=== PATIENT | male | born 1955 | race Caucasian/White ===

== ENCOUNTER 2023-04-11 13:59 | Emergency (ER) | payer SELFPAY ==
[2023-04-11 16:49] LABS: INR 2.23 (0.86-1.11)
== END 2023-04-11 17:24 | disposition home or self-care (01) ==
LOC: MW.ED 13:59
DX: Z76.0 Encounter for issue of repeat prescription (principal); E11.9 Type 2 diabetes mellitus without complications; E03.9 Hypothyroidism, unspecified; E78.00 Pure hypercholesterolemia, unspecified; I10 Essential (primary) hypertension; Z79.01 Long term (current) use of anticoagulants; Z95.4 Presence of other heart-valve replacement; Z51.81 Encounter for therapeutic drug level monitoring; Z79.899 Other long term (current) drug therapy; Z87.891 Personal history of nicotine dependence; Z86.16 Personal history of COVID-19; Z79.84 Long term (current) use of oral hypoglycemic drugs; E78.5 Hyperlipidemia, unspecified
CPT/HCPCS: 36415; 85610; 99282

== ENCOUNTER 2023-05-27 12:10 | Emergency (ER) | payer MEDICARE ==
[2023-05-27] MEDS ORDERED: Sodium Chloride 0.9% 1,000 ML IV ONE (12:20)
[2023-05-27] MEDS ORDERED: Sodium Chloride 0.9% 500 ML IV ONE (12:21)
[2023-05-27 12:32] LABS: BASOPHILS ABSOLUTE AUTO 0.1 K/uL (0.0-0.1); BASOPHILS PERCENT AUTO 0.5 % (0.0-1.5); EOSINOPHILS ABSOLUTE AUTO 0.3 K/uL (0.0-0.7); HEMATOCRIT 49.6 % (38.0-50.0); HEMOGLOBIN 17.1 g/dL (13.0-17.0); LYMPHOCYTES ABSOLUTE AUTO 1.6 K/uL (0.6-2.4); LYMPHOCYTES PERCENT AUTO 16.5 % (16.0-40.0); MEAN CORPUSCULAR HEMOGLOBIN 29.1 pg (27.0-32.0); MEAN CORPUSCULAR HGB CONC 34.5 g/dL (31.0-37.0); MEAN CORPUSCULAR VOLUME 84.5 fL (80.0-98.0); MONOCYTES ABSOLUTE AUTO 0.9 K/uL (0.0-0.8); MONOCYTES PERCENT AUTO 9.5 % (0.0-15.0); NEUTROPHILS ABSOLUTE AUTO 6.7 K/uL (1.4-5.7); NEUTROPHILS PERCENT AUTO 70.5 % (48.0-80.0); NRBC ABSOLUTE 0 K/uL; PLATELET COUNT,PLT 218 K/uL (150-400); RED BLOOD CELL COUNT 5.87 M/uL (4.50-5.90); WHITE BLOOD CELL COUNT,WBC 9.55 K/uL (4.0-11.0)
[2023-05-27 12:39] LABS: D-DIMER QUANTITATIVE 0.59 mg/L FEU (0.00-0.50); INR 3.05 (0.86-1.11)
[2023-05-27 12:46] LABS: A/G RATIO 0.7 (0.9-1.6); ALBUMIN 3.4 g/dL (3.4-5.0); BILIRUBIN TOTAL 0.5 mg/dL (0.2-1.0); CALCIUM 8.5 mg/dL (8.5-10.1); CARBON DIOXIDE,CO2 21.3 mmol/L (21.0-32.0); CREATININE 1.2 mg/dL (0.8-1.3); EST CRCL DRUG DOSING (CG) 57.79 mL/min; POTASSIUM,K 4.2 mmol/L (3.5-5.1); PROTEIN TOTAL,TP 8.2 g/dL (6.4-8.2)
[2023-05-27 14:08] LABS: CORONAVIRUS COVID-19 NAA NEGATIVE (NEGATIVE); INFLUENZA A NAA NEGATIVE (NEGATIVE); INFLUENZA B NAA NEGATIVE (NEGATIVE)
[2023-05-27] MEDS ORDERED: Metoprolol Tartrate 25 MG Tab PO ONE (14:32)
[2023-05-27] MEDS ORDERED: Iopamidol 755 MG/ML 500 ML Multipack Bottle IVPUSH STA (15:05)
== END 2023-05-27 16:22 | disposition left against medical advice (07) ==
LOC: MW.ED 12:10
DX: I48.19 Other persistent atrial fibrillation (principal); R94.31 Abnormal electrocardiogram [ECG] [EKG]; I10 Essential (primary) hypertension; E78.5 Hyperlipidemia, unspecified; E11.9 Type 2 diabetes mellitus without complications; Z79.01 Long term (current) use of anticoagulants; Z79.899 Other long term (current) drug therapy; Z79.84 Long term (current) use of oral hypoglycemic drugs; Z86.16 Personal history of COVID-19; Z20.822 Contact with and (suspected) exposure to COVID-19
CPT/HCPCS: 0240U; 36415; 71045; 71275; 80053; 83690; 84484; 85025; 85379; 85610; 93005; 99285; A9270; J7030; Q9967; 93010; 99284

== ENCOUNTER 2023-07-16 12:09 | Emergency (ER) | payer MEDICARE ==
[2023-07-16 12:45] LABS: BASOPHILS ABSOLUTE AUTO 0.08 K/uL (0.00-0.20); BASOPHILS PERCENT AUTO 0.8 % (0.0-1.0); EOSINOPHILS ABSOLUTE AUTO 0.31 K/uL (0.00-0.45); EOSINOPHILS PERCENT AUTO 2.9 % (0.0-6.0); HEMATOCRIT 51.6 % (42.0-52.0); HEMOGLOBIN 17.4 g/dL (14.0-18.0); IMMATURE GRAN ABSOLUTE AUTO 0.05 K/uL (0.00-0.05); IMMATURE GRAN PERCENT AUTO 0.5 % (0.0-0.4); LYMPHOCYTES ABSOLUTE AUTO 1.24 K/uL (1.00-4.80); LYMPHOCYTES PERCENT AUTO 11.7 % (24.0-44.0); MEAN CORPUSCULAR HEMOGLOBIN 29.3 pg (28.0-32.0); MEAN CORPUSCULAR HGB CONC 33.7 g/dL (32.0-36.0); MEAN PLATELET VOLUME 10.2 fL (9.4-12.4); MONOCYTES PERCENT AUTO 9.4 % (0.0-8.0); NEUTROPHILS ABSOLUTE AUTO 7.95 K/uL (1.80-7.70); NEUTROPHILS PERCENT AUTO 74.7 % (41.0-71.0); PLATELET COUNT,PLT 259 K/uL (150-400); RED BLOOD CELL COUNT 5.93 M/uL (4.52-5.90); WHITE BLOOD CELL COUNT,WBC 10.63 K/uL (3.9-11.3)
[2023-07-16 13:21] LABS: A/G RATIO 0.8 (0.9-1.6); ALBUMIN 3.7 g/dL (3.4-5.0); BILIRUBIN TOTAL 0.5 mg/dL (0.2-1.0); CALCIUM 9.4 mg/dL (8.5-10.1); CARBON DIOXIDE,CO2 19.1 mmol/L (21.0-32.0); CREATININE 1.3 mg/dL (0.8-1.3); EST CRCL DRUG DOSING (CG) 53.35 mL/min; POTASSIUM,K 4.2 mmol/L (3.5-5.1); PROTEIN TOTAL,TP 8.3 g/dL (6.4-8.2)
[2023-07-16 13:57] LABS: HEMOGLOBIN A1C 8.9 %
== END 2023-07-16 15:05 | disposition home or self-care (01) ==
LOC: MW.ED 12:09
DX: I10 Essential (primary) hypertension (principal); I48.91 Unspecified atrial fibrillation; E78.00 Pure hypercholesterolemia, unspecified; E11.9 Type 2 diabetes mellitus without complications; Z79.899 Other long term (current) drug therapy; Z79.01 Long term (current) use of anticoagulants; Z79.85 Long-term (current) use of injectable non-insulin antidiabetic drugs; Z79.84 Long term (current) use of oral hypoglycemic drugs
CPT/HCPCS: 36415; 71045; 71045-26; 80053; 83036; 84484; 85025; 93005; 93010; 99283; 99284

== ENCOUNTER 2024-05-16 19:27 | Emergency (ER) | payer MEDICARE ==
[2024-05-16 20:00] LABS: BASE EXCESS VENOUS -6.9 (-2.0-3.0); BASOPHILS ABSOLUTE AUTO 0.06 K/uL (0.00-0.20); BASOPHILS PERCENT AUTO 0.5 % (0.0-1.0); EOSINOPHILS ABSOLUTE AUTO 0.32 K/uL (0.00-0.45); EOSINOPHILS PERCENT AUTO 2.6 % (0.0-6.0); HEMATOCRIT 53.4 % (42.0-52.0); HEMOGLOBIN 17.5 g/dL (14.0-18.0); IMMATURE GRAN ABSOLUTE AUTO 0.04 K/uL (0.00-0.05); IMMATURE GRAN PERCENT AUTO 0.3 % (0.0-0.4); LYMPHOCYTES ABSOLUTE AUTO 1.43 K/uL (1.00-4.80); LYMPHOCYTES PERCENT AUTO 11.7 % (24.0-44.0); MEAN CORPUSCULAR HEMOGLOBIN 27.4 pg (28.0-32.0); MEAN CORPUSCULAR HGB CONC 32.8 g/dL (32.0-36.0); MEAN CORPUSCULAR VOLUME 83.7 fL (83.0-99.0); MEAN PLATELET VOLUME 9.7 fL (9.4-12.4); MONOCYTES ABSOLUTE AUTO 1.22 K/uL (0.00-0.80); NEUTROPHILS ABSOLUTE AUTO 9.14 K/uL (1.80-7.70); NEUTROPHILS PERCENT AUTO 74.9 % (41.0-71.0); PH,VENOUS 7.34 (7.31-7.41); PLATELET COUNT,PLT 220 K/uL (150-400); RED BLOOD CELL COUNT 6.38 M/uL (4.52-5.90); WHITE BLOOD CELL COUNT,WBC 12.21 K/uL (3.9-11.3)
[2024-05-16 20:18] LABS: INR 2.33 (0.86-1.11); PTT,PARTIAL THROMBOPLSTIN TIME 37.6 SEC (23.9-30.7)
[2024-05-16] MEDS: Sodium Chloride 0.9% 500 ML IV SCH (20:29)
[2024-05-16] MEDS: Sodium Chloride 0.9% 10 ML Syringe FLUSH PRN (20:30)
[2024-05-16] MEDS: Sodium Chloride 0.9% 2.5 ML Syringe FLUSH PRN (20:30)
[2024-05-16] MEDS: Acetaminophen 500 MG Tab PO ONE (20:30)
[2024-05-16 20:35] LABS: LACTIC ACID 3.2 mmol/L (0.4-2.0)
[2024-05-16 20:41] LABS: A/G RATIO 0.8 (0.9-1.6); ALBUMIN 3.4 g/dL (3.4-5.0); BILIRUBIN TOTAL 0.5 mg/dL (0.2-1.0); CARBON DIOXIDE,CO2 18.9 mmol/L (21.0-32.0); CREATININE 1.6 mg/dL (0.8-1.3); EST CRCL DRUG DOSING (CG) 42.75 mL/min; MAGNESIUM 1.6 mg/dL (1.8-2.4); PROTEIN TOTAL,TP 7.8 g/dL (6.4-8.2); TSH ULTRASENSITIVE 2.25 uIU/mL (0.36-3.74)
[2024-05-16] MEDS: Sodium Chloride 0.9% 1,000 ML IV ONE (22:20)
[2024-05-17] MEDS: Sodium Chloride 0.9% 1,000 ML IV ONE (00:16)
[2024-05-17 00:52] LABS: APPEARANCE,URINE CLEAR; BILIRUBIN,URINE NEGATIVE (NEGATIVE); COLOR,URINE YELLOW; GLUCOSE,URINE >=1000 mg/dL (NEGATIVE); KETONES,URINE NEGATIVE (NEGATIVE); LEUKOCYTE ESTERASE,URINE NEGATIVE (NEGATIVE); NITRITE,URINE NEGATIVE (NEGATIVE); OCCULT BLOOD,URINE NEGATIVE (NEGATIVE); PROTEIN,URINE NEGATIVE (NEGATIVE); UROBILINOGEN,URINE 0.2 EU/dL (<2.0)
[2024-05-17 01:02] LABS: AMPHETAMINES SCREEN, URINE NEGATIVE (CUTOFF=500); BARBITURATE SCREEN,URINE NEGATIVE (CUTOFF=200); BENZODIAZEPINES SCREEN,URINE NEGATIVE (CUTOFF=150); BUPRENORPHINE SCREEN,URINE NEGATIVE (CUTOFF=10); METHADONE SCREEN, URINE NEGATIVE (CUTOFF=200); METHAMPHETAMINES SCREEN, URINE NEGATIVE (CUTOFF=500); OXYCODONE SCREEN,URINE NEGATIVE (CUT0FF=100); PCP SCREEN,URINE NEGATIVE (CUTOFF=25); THC SCREEN,URINE 20 NG/ML NEGATIVE (CUTOFF=50)
== END 2024-05-17 02:50 ==
LOC: MW.ED 19:27
DX: I63.9 Cerebral infarction, unspecified (principal); I48.91 Unspecified atrial fibrillation; I10 Essential (primary) hypertension; E78.00 Pure hypercholesterolemia, unspecified; E11.9 Type 2 diabetes mellitus without complications; Z90.49 Acquired absence of other specified parts of digestive tract; Z79.899 Other long term (current) drug therapy; Z79.01 Long term (current) use of anticoagulants; Z79.84 Long term (current) use of oral hypoglycemic drugs
CPT/HCPCS: 36415; 70450; 71045; 73090; 80053; 80305; 80307; 81003; 82803; 83605; 83735; 83880; 84443; 84484; 85025; 85610; 85730; 93005; 96360; 96361; 99285; A9270; J3490; J7030; J7040; U0002; 93010

== ENCOUNTER 2024-07-07 14:37 | Emergency (ER) | payer MEDICARE, MEDICAID ==
[2024-07-07 17:19] LABS: BILIRUBIN,URINE NEGATIVE (NEGATIVE); COLOR,URINE YELLOW; GLUCOSE,URINE >=1000 mg/dL (NEGATIVE); KETONES,URINE NEGATIVE (NEGATIVE); LEUKOCYTE ESTERASE,URINE NEGATIVE (NEGATIVE); NITRITE,URINE NEGATIVE (NEGATIVE); OCCULT BLOOD,URINE LARGE (NEGATIVE); PROTEIN,URINE NEGATIVE (NEGATIVE); UROBILINOGEN,URINE 0.2 EU/dL (<2.0)
[2024-07-07 17:27] LABS: APPEARANCE,URINE SLT CLOUDY
[2024-07-07 17:32] LABS: BACTERIA,URINE FEW (NEGATIVE); EPITHELIAL CELLS,URINE RARE (NONE-FEW); RBC,URINE 15-20 (0-2/HPF); WBC,URINE 0-1 (0-5/HPF)
[2024-07-07] MEDS: Sodium Chloride 0.9% 1,000 ML IV ONE (17:57)
[2024-07-07] MEDS: Ketorolac 30 MG/ML SDV IVPUSH ONE (17:57)
[2024-07-07 18:05] LABS: BASOPHILS ABSOLUTE AUTO 0.09 K/uL (0.00-0.20); BASOPHILS PERCENT AUTO 0.8 % (0.0-1.0); EOSINOPHILS ABSOLUTE AUTO 0.26 K/uL (0.00-0.45); EOSINOPHILS PERCENT AUTO 2.3 % (0.0-6.0); HEMATOCRIT 55.9 % (42.0-52.0); IMMATURE GRAN ABSOLUTE AUTO 0.05 K/uL (0.00-0.05); IMMATURE GRAN PERCENT AUTO 0.4 % (0.0-0.4); LYMPHOCYTES ABSOLUTE AUTO 1.37 K/uL (1.00-4.80); LYMPHOCYTES PERCENT AUTO 12.3 % (24.0-44.0); MEAN CORPUSCULAR HEMOGLOBIN 26.8 pg (28.0-32.0); MEAN CORPUSCULAR HGB CONC 32.2 g/dL (32.0-36.0); MEAN CORPUSCULAR VOLUME 83.3 fL (83.0-99.0); MEAN PLATELET VOLUME 9.7 fL (9.4-12.4); MONOCYTES ABSOLUTE AUTO 1.17 K/uL (0.00-0.80); MONOCYTES PERCENT AUTO 10.5 % (0.0-8.0); NEUTROPHILS ABSOLUTE AUTO 8.24 K/uL (1.80-7.70); NEUTROPHILS PERCENT AUTO 73.7 % (41.0-71.0); PLATELET COUNT,PLT 203 K/uL (150-400); RED BLOOD CELL COUNT 6.71 M/uL (4.52-5.90); WHITE BLOOD CELL COUNT,WBC 11.18 K/uL (3.9-11.3)
[2024-07-07 18:39] LABS: A/G RATIO 0.8 (0.9-1.6); ALBUMIN 3.7 g/dL (3.4-5.0); BILIRUBIN TOTAL 0.7 mg/dL (0.2-1.0); CALCIUM 8.9 mg/dL (8.5-10.1); CARBON DIOXIDE,CO2 23.4 mmol/L (21.0-32.0); CREATININE 1.2 mg/dL (0.8-1.3); EST CRCL DRUG DOSING (CG) 55.08 mL/min; POTASSIUM,K 4.2 mmol/L (3.5-5.1); PROTEIN TOTAL,TP 8.5 g/dL (6.4-8.2)
[2024-07-07] MEDS: Iopamidol 755 MG/ML 500 ML Multipack Bottle IVPUSH STA (19:19)
== END 2024-07-07 20:48 | disposition home or self-care (01) ==
LOC: MW.ED 14:37
DX: R31.9 Hematuria, unspecified (principal); R91.1 Solitary pulmonary nodule; I10 Essential (primary) hypertension; E11.9 Type 2 diabetes mellitus without complications; Z90.49 Acquired absence of other specified parts of digestive tract; Z79.899 Other long term (current) drug therapy; Z79.84 Long term (current) use of oral hypoglycemic drugs; Z75.8 Other problems related to medical facilities and other health care
CPT/HCPCS: 36415; 74177; 80053; 81001; 85025; 96361; 96374; 99284; J1885; J7030; Q9967

== ENCOUNTER 2024-08-06 14:10 | Inpatient (IN) | payer MEDICARE, MEDICAID ==
[2024-08-06] MEDS: Iopamidol 755 MG/ML 500 ML Multipack Bottle IVPUSH STA (14:22)
[2024-08-06 14:59] LABS: EOSINOPHILS ABSOLUTE AUTO 0.22 K/uL (0.00-0.45); EOSINOPHILS PERCENT AUTO 2.3 % (0.0-6.0); HEMATOCRIT 54.6 % (42.0-52.0); HEMOGLOBIN 17.7 g/dL (14.0-18.0); IMMATURE GRAN ABSOLUTE AUTO 0.04 K/uL (0.00-0.05); IMMATURE GRAN PERCENT AUTO 0.4 % (0.0-0.4); LYMPHOCYTES ABSOLUTE AUTO 0.91 K/uL (1.00-4.80); LYMPHOCYTES PERCENT AUTO 9.5 % (24.0-44.0); MEAN CORPUSCULAR HGB CONC 32.4 g/dL (32.0-36.0); MEAN CORPUSCULAR VOLUME 83.4 fL (83.0-99.0); MONOCYTES ABSOLUTE AUTO 0.86 K/uL (0.00-0.80); NEUTROPHILS ABSOLUTE AUTO 7.46 K/uL (1.80-7.70); NEUTROPHILS PERCENT AUTO 77.8 % (41.0-71.0); PLATELET COUNT,PLT 167 K/uL (150-400); RED BLOOD CELL COUNT 6.55 M/uL (4.52-5.90); WHITE BLOOD CELL COUNT,WBC 9.59 K/uL (3.9-11.3)
[2024-08-06 15:03] LABS: INR 1.88 (0.86-1.11)
[2024-08-06 15:26] LABS: A/G RATIO 0.8 (0.9-1.6); ALANINE AMINOTRANSFERASE,ALT 19 IU/L (14-63); ALBUMIN 3.5 g/dL (3.4-5.0); ALKALINE PHOSPHATASE 126 U/L (46-116); ASPARTATE AMNIOTRANSFERASE,AST 24 IU/L (15-37); BILIRUBIN TOTAL 0.7 mg/dL (0.2-1.0); BLOOD UREA NITROGEN,BUN 16 mg/dL (7.0-18.0); CARBON DIOXIDE,CO2 25.8 mmol/L (21.0-32.0); CHLORIDE,CL 101 mmol/L (98-107); CREATININE 1.3 mg/dL (0.8-1.3); GLUCOSE RANDOM 175 mg/dL (74-106); POTASSIUM,K 4.6 mmol/L (3.5-5.1); PROTEIN TOTAL,TP 7.8 g/dL (6.4-8.2); SODIUM,NA 136 mmol/L (136-148)
[2024-08-06 15:28] LABS: ESTIMATED GFR 60 mL/min (>60)
[2024-08-06 17:25] LABS: APPEARANCE,URINE CLEAR; BILIRUBIN,URINE NEGATIVE (NEGATIVE); COLOR,URINE YELLOW; GLUCOSE,URINE >=1000 mg/dL (NEGATIVE); KETONES,URINE NEGATIVE (NEGATIVE); LEUKOCYTE ESTERASE,URINE NEGATIVE (NEGATIVE); NITRITE,URINE NEGATIVE (NEGATIVE); OCCULT BLOOD,URINE SMALL (NEGATIVE); PH,URINE 5.5 (5.0-8.0); PROTEIN,URINE NEGATIVE (NEGATIVE); UROBILINOGEN,URINE 0.2 EU/dL (<2.0)
[2024-08-06 18:26] LABS: BACTERIA,URINE RARE (NEGATIVE); EPITHELIAL CELLS,URINE RARE (NONE-FEW); RBC,URINE 0-2 (0-2/HPF); WBC,URINE 0-1 (0-5/HPF)
[2024-08-06] MEDS ORDERED: Ondansetron 4 MG Tab.DIS PO PRN (18:26)
[2024-08-06] MEDS ORDERED: Bisacodyl 5 MG Tab PO PRN (18:26)
[2024-08-06 19:05] LABS: TSH ULTRASENSITIVE 1.23 uIU/mL (0.36-3.74)
[2024-08-06 19:08] LABS: HEMOGLOBIN A1C 8.7 %
[2024-08-06] MEDS: Metoprolol Tartrate 25 MG Tab PO SCH (20:05)
[2024-08-06 20:13] LABS: INR 1.81 (0.86-1.11)
[2024-08-06] MEDS: Warfarin 5 MG Tab PO ONE (22:33)
[2024-08-07] MEDS: Acetaminophen 325 MG Tab PO PRN (02:39)
[2024-08-07 06:06] LABS: BASOPHILS ABSOLUTE AUTO 0.11 K/uL (0.00-0.20); EOSINOPHILS ABSOLUTE AUTO 0.22 K/uL (0.00-0.45); HEMATOCRIT 54.9 % (42.0-52.0); HEMOGLOBIN 17.8 g/dL (14.0-18.0); IMMATURE GRAN ABSOLUTE AUTO 0.04 K/uL (0.00-0.05); IMMATURE GRAN PERCENT AUTO 0.4 % (0.0-0.4); LYMPHOCYTES ABSOLUTE AUTO 1.43 K/uL (1.00-4.80); LYMPHOCYTES PERCENT AUTO 12.9 % (24.0-44.0); MEAN CORPUSCULAR HEMOGLOBIN 26.7 pg (28.0-32.0); MEAN CORPUSCULAR HGB CONC 32.4 g/dL (32.0-36.0); MEAN CORPUSCULAR VOLUME 82.4 fL (83.0-99.0); MEAN PLATELET VOLUME 10.1 fL (9.4-12.4); MONOCYTES ABSOLUTE AUTO 1.05 K/uL (0.00-0.80); MONOCYTES PERCENT AUTO 9.4 % (0.0-8.0); NEUTROPHILS ABSOLUTE AUTO 8.27 K/uL (1.80-7.70); NEUTROPHILS PERCENT AUTO 74.3 % (41.0-71.0); PLATELET COUNT,PLT 177 K/uL (150-400); RED BLOOD CELL COUNT 6.66 M/uL (4.52-5.90); WHITE BLOOD CELL COUNT,WBC 11.12 K/uL (3.9-11.3)
[2024-08-07 06:20] LABS: INR 1.77 (0.86-1.11)
[2024-08-07 06:34] LABS: A/G RATIO 0.8 (0.9-1.6); ALBUMIN 3.5 g/dL (3.4-5.0); BILIRUBIN TOTAL 0.8 mg/dL (0.2-1.0); CARBON DIOXIDE,CO2 23.2 mmol/L (21.0-32.0); CREATININE 1.3 mg/dL (0.8-1.3); EST CRCL DRUG DOSING (CG) 49.08 mL/min; POTASSIUM,K 4.1 mmol/L (3.5-5.1); PROTEIN TOTAL,TP 7.8 g/dL (6.4-8.2)
[2024-08-07] MEDS: ARIPiprazole 10 MG Tab PO SCH (08:49)
[2024-08-07] MEDS ORDERED: Warfarin 5 MG Tab PO SCH (09:00)
[2024-08-07] MEDS ORDERED: Warfarin Sliding Scale PO SCH (09:00)
[2024-08-07] MEDS: Metoprolol Tartrate 5 MG/5 ML SDV IVPUSH ONE ×2 (10:23→17:58)
[2024-08-07] MEDS: Metoprolol Tartrate 25 MG Tab PO ONE (10:24)
[2024-08-07] MEDS: Warfarin 5 MG Tab PO ONE (14:18)
[2024-08-07] MEDS: Warfarin Sliding Scale SCH (14:20)
[2024-08-07] MEDS: LORazepam 2 MG/ML SDV IVPUSH ONE (15:02)
[2024-08-07] MEDS: Gadobenate Dimeglumine 529 MG/ML 20 ML SDV IVPUSH ONE (15:56)
[2024-08-07] MEDS: Metoprolol Tartrate 50 MG Tab PO SCH (20:55)
[2024-08-08 06:32] LABS: INR 2.03 (0.86-1.11)
[2024-08-08] MEDS: Metoprolol Tartrate 25 MG Tab PO ONE (07:28)
[2024-08-08 08:00] LABS: BASOPHILS ABSOLUTE AUTO 0.08 K/uL (0.00-0.20); BASOPHILS PERCENT AUTO 0.7 % (0.0-1.0); EOSINOPHILS ABSOLUTE AUTO 0.09 K/uL (0.00-0.45); EOSINOPHILS PERCENT AUTO 0.8 % (0.0-6.0); HEMATOCRIT 54.6 % (42.0-52.0); HEMOGLOBIN 17.9 g/dL (14.0-18.0); IMMATURE GRAN ABSOLUTE AUTO 0.04 K/uL (0.00-0.05); IMMATURE GRAN PERCENT AUTO 0.4 % (0.0-0.4); LYMPHOCYTES ABSOLUTE AUTO 1.07 K/uL (1.00-4.80); LYMPHOCYTES PERCENT AUTO 9.9 % (24.0-44.0); MEAN CORPUSCULAR HEMOGLOBIN 27.1 pg (28.0-32.0); MEAN CORPUSCULAR HGB CONC 32.8 g/dL (32.0-36.0); MEAN CORPUSCULAR VOLUME 82.7 fL (83.0-99.0); MEAN PLATELET VOLUME 9.7 fL (9.4-12.4); MONOCYTES ABSOLUTE AUTO 0.93 K/uL (0.00-0.80); MONOCYTES PERCENT AUTO 8.6 % (0.0-8.0); NEUTROPHILS ABSOLUTE AUTO 8.58 K/uL (1.80-7.70); NEUTROPHILS PERCENT AUTO 79.6 % (41.0-71.0); PLATELET COUNT,PLT 163 K/uL (150-400); WHITE BLOOD CELL COUNT,WBC 10.79 K/uL (3.9-11.3)
[2024-08-08 08:24] LABS: A/G RATIO 0.8 (0.9-1.6); ALBUMIN 3.5 g/dL (3.4-5.0); BILIRUBIN TOTAL 0.7 mg/dL (0.2-1.0); CALCIUM 9.3 mg/dL (8.5-10.1); CARBON DIOXIDE,CO2 23.4 mmol/L (21.0-32.0); CREATININE 1.4 mg/dL (0.8-1.3); EST CRCL DRUG DOSING (CG) 45.57 mL/min; POTASSIUM,K 4.4 mmol/L (3.5-5.1); PROTEIN TOTAL,TP 8.1 g/dL (6.4-8.2)
[2024-08-08] MEDS: Lisinopril 5 MG Tab PO SCH (08:34)
[2024-08-08] MEDS: Empagliflozin 10 MG Tab PO SCH (08:35)
[2024-08-08] MEDS ORDERED: ARIPiprazole 10 MG Tab PO SCH (09:00)
[2024-08-08] MEDS: Pantoprazole 40 MG Tab.CR PO SCH (09:01)
[2024-08-08] MEDS: Warfarin 10 MG Tab PO SCH (13:24)
[2024-08-08] MEDS: Sodium Chloride 0.9% 500 ML IV SCH (15:00)
[2024-08-08] MEDS: Carboxymethylcellulose Sodium 0.5% Ophth Soln 0.4 ML UD Box of 30 EYEBOTH PRN (17:23)
[2024-08-08] MEDS: rOPINIRole 1 MG Tab PO SCH (21:20)
[2024-08-08] MEDS: Melatonin 3 MG Tab PO PRN (21:24)
[2024-08-09 07:13] LABS: BASOPHILS ABSOLUTE AUTO 0.09 K/uL (0.00-0.20); BASOPHILS PERCENT AUTO 0.8 % (0.0-1.0); EOSINOPHILS ABSOLUTE AUTO 0.38 K/uL (0.00-0.45); EOSINOPHILS PERCENT AUTO 3.6 % (0.0-6.0); HEMATOCRIT 55.2 % (42.0-52.0); HEMOGLOBIN 17.8 g/dL (14.0-18.0); IMMATURE GRAN ABSOLUTE AUTO 0.03 K/uL (0.00-0.05); IMMATURE GRAN PERCENT AUTO 0.3 % (0.0-0.4); LYMPHOCYTES PERCENT AUTO 14.1 % (24.0-44.0); MEAN CORPUSCULAR HEMOGLOBIN 26.8 pg (28.0-32.0); MEAN CORPUSCULAR HGB CONC 32.2 g/dL (32.0-36.0); MEAN CORPUSCULAR VOLUME 83.3 fL (83.0-99.0); MEAN PLATELET VOLUME 9.7 fL (9.4-12.4); MONOCYTES ABSOLUTE AUTO 0.97 K/uL (0.00-0.80); MONOCYTES PERCENT AUTO 9.1 % (0.0-8.0); NEUTROPHILS ABSOLUTE AUTO 7.65 K/uL (1.80-7.70); NEUTROPHILS PERCENT AUTO 72.1 % (41.0-71.0); PLATELET COUNT,PLT 156 K/uL (150-400); RED BLOOD CELL COUNT 6.63 M/uL (4.52-5.90); WHITE BLOOD CELL COUNT,WBC 10.62 K/uL (3.9-11.3)
[2024-08-09 07:23] LABS: INR 2.45 (0.86-1.11)
[2024-08-09] MEDS: Levothyroxine 100 MCG Tab PO SCH (07:41)
[2024-08-09 07:53] LABS: A/G RATIO 0.8 (0.9-1.6); ALBUMIN 3.4 g/dL (3.4-5.0); BILIRUBIN TOTAL 0.6 mg/dL (0.2-1.0); CALCIUM 9.2 mg/dL (8.5-10.1); CARBON DIOXIDE,CO2 21.5 mmol/L (21.0-32.0); CREATININE 1.5 mg/dL (0.8-1.3); EST CRCL DRUG DOSING (CG) 42.53 mL/min; POTASSIUM,K 4.2 mmol/L (3.5-5.1); PROTEIN TOTAL,TP 7.7 g/dL (6.4-8.2)
[2024-08-09] MEDS: Sodium Chloride 0.9% 1,000 ML IV ONE (11:30)
[2024-08-09] MEDS: Warfarin 5 MG Tab PO ONE (14:31)
[2024-08-09] MEDS: Polyethylene Glycol 3350 Powder 17 GM Packet PO PRN (19:47)
[2024-08-10 05:41] LABS: BASOPHILS ABSOLUTE AUTO 0.09 K/uL (0.00-0.20); BASOPHILS PERCENT AUTO 0.9 % (0.0-1.0); EOSINOPHILS ABSOLUTE AUTO 0.44 K/uL (0.00-0.45); EOSINOPHILS PERCENT AUTO 4.6 % (0.0-6.0); HEMATOCRIT 53.7 % (42.0-52.0); HEMOGLOBIN 16.7 g/dL (14.0-18.0); IMMATURE GRAN ABSOLUTE AUTO 0.04 K/uL (0.00-0.05); IMMATURE GRAN PERCENT AUTO 0.4 % (0.0-0.4); LYMPHOCYTES ABSOLUTE AUTO 1.26 K/uL (1.00-4.80); LYMPHOCYTES PERCENT AUTO 13.2 % (24.0-44.0); MEAN CORPUSCULAR HEMOGLOBIN 26.3 pg (28.0-32.0); MEAN CORPUSCULAR HGB CONC 31.1 g/dL (32.0-36.0); MEAN CORPUSCULAR VOLUME 84.7 fL (83.0-99.0); MEAN PLATELET VOLUME 10.5 fL (9.4-12.4); MONOCYTES ABSOLUTE AUTO 1.04 K/uL (0.00-0.80); MONOCYTES PERCENT AUTO 10.9 % (0.0-8.0); NEUTROPHILS ABSOLUTE AUTO 6.64 K/uL (1.80-7.70); PLATELET COUNT,PLT 170 K/uL (150-400); RED BLOOD CELL COUNT 6.34 M/uL (4.52-5.90); WHITE BLOOD CELL COUNT,WBC 9.51 K/uL (3.9-11.3)
[2024-08-10 06:05] LABS: A/G RATIO 0.8 (0.9-1.6); ALBUMIN 3.1 g/dL (3.4-5.0); BILIRUBIN TOTAL 0.6 mg/dL (0.2-1.0); CARBON DIOXIDE,CO2 21.3 mmol/L (21.0-32.0); CREATININE 1.3 mg/dL (0.8-1.3); EST CRCL DRUG DOSING (CG) 49.08 mL/min; POTASSIUM,K 4.2 mmol/L (3.5-5.1); PROTEIN TOTAL,TP 7.2 g/dL (6.4-8.2)
[2024-08-10 11:23] LABS: INR 2.82 (0.86-1.11)
[2024-08-10] MEDS: Warfarin 5 MG Tab PO ONE (13:47)
[2024-08-11 07:13] LABS: BASOPHILS PERCENT AUTO 1.1 % (0.0-1.0); EOSINOPHILS ABSOLUTE AUTO 0.32 K/uL (0.00-0.45); EOSINOPHILS PERCENT AUTO 3.4 % (0.0-6.0); HEMATOCRIT 57.6 % (42.0-52.0); HEMOGLOBIN 18.4 g/dL (14.0-18.0); IMMATURE GRAN ABSOLUTE AUTO 0.03 K/uL (0.00-0.05); IMMATURE GRAN PERCENT AUTO 0.3 % (0.0-0.4); LYMPHOCYTES ABSOLUTE AUTO 1.52 K/uL (1.00-4.80); LYMPHOCYTES PERCENT AUTO 16.1 % (24.0-44.0); MEAN CORPUSCULAR HEMOGLOBIN 26.9 pg (28.0-32.0); MEAN CORPUSCULAR HGB CONC 31.9 g/dL (32.0-36.0); MEAN CORPUSCULAR VOLUME 84.1 fL (83.0-99.0); MEAN PLATELET VOLUME 10.3 fL (9.4-12.4); MONOCYTES ABSOLUTE AUTO 1.02 K/uL (0.00-0.80); MONOCYTES PERCENT AUTO 10.8 % (0.0-8.0); NEUTROPHILS ABSOLUTE AUTO 6.47 K/uL (1.80-7.70); NEUTROPHILS PERCENT AUTO 68.3 % (41.0-71.0); PLATELET COUNT,PLT 177 K/uL (150-400); RED BLOOD CELL COUNT 6.85 M/uL (4.52-5.90); WHITE BLOOD CELL COUNT,WBC 9.46 K/uL (3.9-11.3)
[2024-08-11 07:36] LABS: INR 2.81 (0.86-1.11)
[2024-08-11 07:52] LABS: A/G RATIO 0.8 (0.9-1.6); ALBUMIN 3.8 g/dL (3.4-5.0); BILIRUBIN TOTAL 0.7 mg/dL (0.2-1.0); CALCIUM 9.7 mg/dL (8.5-10.1); CARBON DIOXIDE,CO2 19.7 mmol/L (21.0-32.0); CREATININE 1.4 mg/dL (0.8-1.3); EST CRCL DRUG DOSING (CG) 45.57 mL/min; POTASSIUM,K 4.3 mmol/L (3.5-5.1); PROTEIN TOTAL,TP 8.5 g/dL (6.4-8.2)
[2024-08-11] MEDS ORDERED: 50% Dextrose in Water 50 ML Syringe IVPUSH PRN (08:14)
[2024-08-11] MEDS ORDERED: Glucagon,Human Recombinant 1 MG Vial IM PRN (08:14)
[2024-08-11] MEDS ORDERED: Albuterol/Ipratropium 3.0-0.5 MG/3 ML Neb Soln NEB PRN (08:59)
[2024-08-11] MEDS: Insulin Aspart 100 Units/ML 3 ML Pen SUBCUT SCH (13:24)
[2024-08-11] MEDS: Warfarin 5 MG Tab PO ONE (13:29)
[2024-08-11] MEDS: ARIPiprazole 10 MG Tab PO SCH (21:13)
[2024-08-11] MEDS: atorvaSTATin 40 MG Tab PO SCH (21:14)
[2024-08-12 05:49] LABS: BASOPHILS ABSOLUTE AUTO 0.09 K/uL (0.00-0.20); BASOPHILS PERCENT AUTO 1.1 % (0.0-1.0); EOSINOPHILS ABSOLUTE AUTO 0.34 K/uL (0.00-0.45); EOSINOPHILS PERCENT AUTO 4.2 % (0.0-6.0); HEMATOCRIT 54.6 % (42.0-52.0); HEMOGLOBIN 17.3 g/dL (14.0-18.0); IMMATURE GRAN ABSOLUTE AUTO 0.03 K/uL (0.00-0.05); IMMATURE GRAN PERCENT AUTO 0.4 % (0.0-0.4); LYMPHOCYTES ABSOLUTE AUTO 1.16 K/uL (1.00-4.80); LYMPHOCYTES PERCENT AUTO 14.3 % (24.0-44.0); MEAN CORPUSCULAR HEMOGLOBIN 26.5 pg (28.0-32.0); MEAN CORPUSCULAR HGB CONC 31.7 g/dL (32.0-36.0); MEAN CORPUSCULAR VOLUME 83.6 fL (83.0-99.0); MEAN PLATELET VOLUME 10.6 fL (9.4-12.4); MONOCYTES ABSOLUTE AUTO 0.99 K/uL (0.00-0.80); MONOCYTES PERCENT AUTO 12.2 % (0.0-8.0); NEUTROPHILS ABSOLUTE AUTO 5.52 K/uL (1.80-7.70); NEUTROPHILS PERCENT AUTO 67.8 % (41.0-71.0); PLATELET COUNT,PLT 169 K/uL (150-400); RED BLOOD CELL COUNT 6.53 M/uL (4.52-5.90); WHITE BLOOD CELL COUNT,WBC 8.13 K/uL (3.9-11.3)
[2024-08-12 06:16] LABS: CALCIUM 8.9 mg/dL (8.5-10.1); CARBON DIOXIDE,CO2 22.1 mmol/L (21.0-32.0); CREATININE 1.4 mg/dL (0.8-1.3); EST CRCL DRUG DOSING (CG) 45.57 mL/min; POTASSIUM,K 3.9 mmol/L (3.5-5.1)
[2024-08-12 06:20] LABS: INR 2.68 (0.86-1.11)
[2024-08-12] MEDS: Fluticasone NASAL Spray 16 GM Bottle NASBOTH SCH (08:41)
[2024-08-12] MEDS: Warfarin 10 MG Tab PO ONE (17:57)
[2024-08-12] MEDS: Warfarin 10 MG Tab PO SCH (19:32)
[2024-08-13 05:38] LABS: BASOPHILS ABSOLUTE AUTO 0.09 K/uL (0.00-0.20); EOSINOPHILS ABSOLUTE AUTO 0.41 K/uL (0.00-0.45); EOSINOPHILS PERCENT AUTO 4.5 % (0.0-6.0); HEMATOCRIT 52.4 % (42.0-52.0); HEMOGLOBIN 16.9 g/dL (14.0-18.0); IMMATURE GRAN ABSOLUTE AUTO 0.04 K/uL (0.00-0.05); IMMATURE GRAN PERCENT AUTO 0.4 % (0.0-0.4); LYMPHOCYTES ABSOLUTE AUTO 1.12 K/uL (1.00-4.80); LYMPHOCYTES PERCENT AUTO 12.3 % (24.0-44.0); MEAN CORPUSCULAR HEMOGLOBIN 26.7 pg (28.0-32.0); MEAN CORPUSCULAR HGB CONC 32.3 g/dL (32.0-36.0); MEAN CORPUSCULAR VOLUME 82.8 fL (83.0-99.0); MEAN PLATELET VOLUME 10.4 fL (9.4-12.4); MONOCYTES ABSOLUTE AUTO 0.92 K/uL (0.00-0.80); MONOCYTES PERCENT AUTO 10.1 % (0.0-8.0); NEUTROPHILS ABSOLUTE AUTO 6.52 K/uL (1.80-7.70); NEUTROPHILS PERCENT AUTO 71.7 % (41.0-71.0); PLATELET COUNT,PLT 177 K/uL (150-400); RED BLOOD CELL COUNT 6.33 M/uL (4.52-5.90)
[2024-08-13 05:53] LABS: INR 2.96 (0.86-1.11)
[2024-08-13 05:54] LABS: CALCIUM 8.9 mg/dL (8.5-10.1); CARBON DIOXIDE,CO2 23.5 mmol/L (21.0-32.0); CREATININE 1.3 mg/dL (0.8-1.3); EST CRCL DRUG DOSING (CG) 49.08 mL/min
[2024-08-13] MEDS: Warfarin 5 MG, Warfarin 2.5 MG PO SCH (14:19)
[2024-08-14 05:41] LABS: BASOPHILS ABSOLUTE AUTO 0.09 K/uL (0.00-0.20); EOSINOPHILS ABSOLUTE AUTO 0.31 K/uL (0.00-0.45); EOSINOPHILS PERCENT AUTO 3.4 % (0.0-6.0); HEMATOCRIT 52.2 % (42.0-52.0); HEMOGLOBIN 17.3 g/dL (14.0-18.0); IMMATURE GRAN ABSOLUTE AUTO 0.03 K/uL (0.00-0.05); IMMATURE GRAN PERCENT AUTO 0.3 % (0.0-0.4); LYMPHOCYTES ABSOLUTE AUTO 0.98 K/uL (1.00-4.80); LYMPHOCYTES PERCENT AUTO 10.8 % (24.0-44.0); MEAN CORPUSCULAR HEMOGLOBIN 27.5 pg (28.0-32.0); MEAN CORPUSCULAR HGB CONC 33.1 g/dL (32.0-36.0); MEAN CORPUSCULAR VOLUME 82.9 fL (83.0-99.0); MEAN PLATELET VOLUME 10.7 fL (9.4-12.4); MONOCYTES ABSOLUTE AUTO 0.89 K/uL (0.00-0.80); MONOCYTES PERCENT AUTO 9.8 % (0.0-8.0); NEUTROPHILS ABSOLUTE AUTO 6.76 K/uL (1.80-7.70); NEUTROPHILS PERCENT AUTO 74.7 % (41.0-71.0); PLATELET COUNT,PLT 185 K/uL (150-400); WHITE BLOOD CELL COUNT,WBC 9.06 K/uL (3.9-11.3)
[2024-08-14 05:54] LABS: INR 3.66 (0.86-1.11)
[2024-08-14 05:58] LABS: CARBON DIOXIDE,CO2 22.3 mmol/L (21.0-32.0); CREATININE 1.4 mg/dL (0.8-1.3); EST CRCL DRUG DOSING (CG) 45.57 mL/min; POTASSIUM,K 4.1 mmol/L (3.5-5.1)
[2024-08-14] MEDS: Warfarin 5 MG Tab PO ONE (11:50)
== END 2024-08-14 13:30 | DRG 65 ==
LOC: MW.ED 14:10 → MW.MS 17:31 → MW.ICU 08-07 21:18 → MW.MS 08-09 19:04
PROVIDERS: ADMIT Internal Medicine; ATTEND Family Medicine
DX: R41.0 Disorientation, unspecified (principal); R26.81 Unsteadiness on feet; I63.10 Cerebral infarction due to embolism of unspecified precerebral artery; I48.19 Other persistent atrial fibrillation; I10 Essential (primary) hypertension; E78.00 Pure hypercholesterolemia, unspecified; E11.9 Type 2 diabetes mellitus without complications; Z79.899 Other long term (current) drug therapy; Z90.49 Acquired absence of other specified parts of digestive tract; Z79.01 Long term (current) use of anticoagulants; Z95.2 Presence of prosthetic heart valve; R29.702 NIHSS score 2
CPT/HCPCS: 36415; 70450; 70496; 70498; 71045; 80053; 80061; 81001; 83036; 83880; 84443; 84484; 85025; 85610; 93005; 99285; Q9967; 70553; 70553-26; 80048; 82947; 87428-QW; 93010; 93306; 97110-GP; 97163-GP; 97164-GP; 97165-GO; 97168-GO; 97530-GP; 99223; 99232; 99233; 99239; 99284; A9270-GY; A9577; J1815-GY; J2060; J3490; J7030; J7040

== ENCOUNTER 2025-08-19 16:56 | Emergency (ER) | payer MEDICARE, MEDICAID ==
[2025-08-19] MEDS ORDERED: Sodium Chloride 0.9% 2.5 ML Syringe FLUSH PRN (17:17)
[2025-08-19] MEDS ORDERED: Sodium Chloride 0.9% 10 ML Syringe FLUSH PRN (17:17)
[2025-08-19 17:24] LABS: BASOPHILS ABSOLUTE AUTO 0.06 K/uL (0.00-0.20); BASOPHILS PERCENT AUTO 0.5 % (0.0-1.0); EOSINOPHILS ABSOLUTE AUTO 0.40 K/uL (0.00-0.45); EOSINOPHILS PERCENT AUTO 3.2 % (0.0-6.0); IMMATURE GRAN ABSOLUTE AUTO 0.03 K/uL (0.00-0.05); IMMATURE GRAN PERCENT AUTO 0.2 % (0.0-0.4); LYMPHOCYTES ABSOLUTE AUTO 1.27 K/uL (1.00-4.80); LYMPHOCYTES PERCENT AUTO 10.2 % (24.0-44.0); MEAN PLATELET VOLUME 10.1 fL (9.4-12.4); MONOCYTES ABSOLUTE AUTO 1.42 K/uL (0.00-0.80); MONOCYTES PERCENT AUTO 11.5 % (0.0-8.0); NEUTROPHILS ABSOLUTE AUTO 9.22 K/uL (1.80-7.70); NEUTROPHILS PERCENT AUTO 74.4 % (41.0-71.0); NRBC ABSOLUTE 0.00 K/uL (0.00-0.02); NRBC PERCENT 0.0 /100WBC (0.0-0.2); PLATELET COUNT,PLT 176 K/uL (150-400); RED BLOOD CELL COUNT 5.87 M/uL (4.52-5.90); WHITE BLOOD CELL COUNT,WBC 12.40 K/uL (3.9-11.3)
[2025-08-19 17:32] LABS: INR 3.71 (0.86-1.11); PTT,PARTIAL THROMBOPLSTIN TIME 40.9 SEC (23.9-30.7)
[2025-08-19 17:46] LABS: A/G RATIO 0.7 (0.9-1.6); ALANINE AMINOTRANSFERASE,ALT 20.0 IU/L (14-63); ASPARTATE AMNIOTRANSFERASE,AST 23.0 IU/L (15-37); BILIRUBIN TOTAL 0.5 mg/dL (0.2-1.0); BLOOD UREA NITROGEN,BUN 26.0 mg/dL (7.0-18.0); CARBON DIOXIDE,CO2 26.5 mmol/L (21.0-32.0); CHLORIDE,CL 107.0 mmol/L (98-107); CREATINE KINASE,CK 106.0 U/L (26-308); CREATININE 1.3 mg/dL (0.8-1.3); EST CRCL DRUG DOSING (CG) 50.14 mL/min; GLUCOSE RANDOM 146.0 mg/dL (74-106); POTASSIUM,K 4.0 mmol/L (3.5-5.1); PROTEIN TOTAL,TP 7.7 g/dL (6.4-8.2); SODIUM,NA 142.0 mmol/L (136-148)
[2025-08-19] MEDS: Iopamidol 755 MG/ML 500 ML Multipack Bottle IVPUSH STA (17:46)
[2025-08-19 17:48] LABS: ESTIMATED GFR 59.0 mL/min (>60)
[2025-08-19 17:51] LABS: LACTIC ACID 1.0 mmol/L (0.4-2.0)
[2025-08-19 19:51] LABS: APPEARANCE,URINE CLEAR; GLUCOSE,URINE >=1000 mg/dL (NEGATIVE); OCCULT BLOOD,URINE NEGATIVE (NEGATIVE)
[2025-08-19] MEDS ORDERED: Naloxone 0.4 MG/ML SDV IVPUSH PRN (20:29)
== END 2025-08-19 22:51 ==
LOC: MW.ED 16:56
DX: S32.019A Unspecified fracture of first lumbar vertebra, initial encounter for closed fracture (principal); E86.0 Dehydration; I48.91 Unspecified atrial fibrillation; I10 Essential (primary) hypertension; E78.00 Pure hypercholesterolemia, unspecified; E11.9 Type 2 diabetes mellitus without complications; Z90.49 Acquired absence of other specified parts of digestive tract; Z95.2 Presence of prosthetic heart valve; Z79.01 Long term (current) use of anticoagulants; Z79.890 Hormone replacement therapy; Z79.899 Other long term (current) drug therapy; W19.XXXA Unspecified fall, initial encounter
CPT/HCPCS: 36415; 70450; 71045; 71260; 72125; 72128; 72131; 72170; 74177; 80053; 81003; 82550; 83605; 83735; 84484; 85025; 85610; 85730; 86850; 86900; 86901; 96374; 99285; J2270; Q9967; 99284